=== PATIENT | female | born 1985 | race Caucasian/White ===

== ENCOUNTER 2016-04-17 04:38 | Emergency (ER) | payer OTHER, BC ==
[2016-04-17] MEDS ORDERED: Ketorolac INJ* 30 MG/ML 1 ML VIAL IV PUSH ONE (05:00)
[2016-04-17] MEDS ORDERED: Ondansetron INJ* 2 MG/ML VIAL IV ONE (05:00)
[2016-04-17] MEDS ORDERED: NS 0.9% 1000 ML* 1,000 ML IV ONE (05:00)
[2016-04-17 05:17] LABS: Hematocrit 39 % (35-47); Hemoglobin 12.9 g/dl (12.0-16.0); Mean Corpuscular HGB Conc 33 g/dl (31-36); Mean Corpuscular Hemoglobin 30 pg (27-31); Mean Corpuscular Volume 91 fL (80-97); Mean Platelet Volume 8 um3 (7.4-10.4); Red Blood Count 4.25 10^6/ul (4.0-5.4); Red Cell Distribution Width 14 % (10.5-15); White Blood Count 7.6 10^3/ul (3.5-10.8)
[2016-04-17 05:18] LABS: Comments Flag Yes
[2016-04-17 05:19] LABS: Add Diff/Slide Review? Slide Review Added
[2016-04-17 05:35] LABS: BUN/Creatinine Ratio 12.7 (8-20); EGFR African American 123.5 (>60); Potassium 3.5 mmol/L (3.5-5.0)
[2016-04-17] MEDS ORDERED: PROCHLORPERAZINE INJ 5 MG/ML 2 ML VIAL IV ONE (06:01)
[2016-04-17] MEDS ORDERED: diPHENhydraMINE IV* 50 MG/ML 1 ml VIAL (BENADRYL) IV ONE (06:01)
--- NOTE | 2016-04-17 06:47 | ED ---
Tamera Plasencia Janilya, scribed for Devendra Thapa MD on 04/17/16 at 0503 . Headache - HPI Summary HPI Summary: [facility] 31 [facility]/ a sudden onset of constant migraines starting an hour and a half ago. Severity rated as the worst COLLINS ever. Pt describes the COLLINS as tension in the head. In addition, pt reports numbness in hands and nausea. - History Of Current Complaint Chief Complaint: EDHeadache Stated Complaint: NUMB HANDS,TONGUE/FUZZY VISION Time Seen by Provider: 04/17/16 04:57 Hx Obtained From: Patient Onset/Duration: Sudden Onset, Started hours ago, Still Present Initially Headache Was: "Worst Headache Ever" Currently Pain Is: Moderate Timing: Constant Character: Migraine Aggravating Factor: Nothing Allevating Factors: Nothing Associated Signs And Symptoms: Nausea - Allergies/Home Medications Allergies/Adverse Reactions: Allergies Allergy/AdvReac Type Severity Reaction Status Date / Time Bee Venom Allergy Intermediate Rash And Verified 04/17/16 04:46 Itching PMH/Surg Hx/FS Hx/Imm Hx Infectious Disease History: No Infectious Disease History: Reports: Traveled Outside the [place] in Last 30 Days - [place], returned 2 weeks [employer]. - Family History Known Family History: Negative: Cardiac Disease, Hypertension, Diabetes - Social History Hx Substance Use: No Review of Systems Negative: Fever Positive: Nausea Positive: Headache - as well as tension, Numbness - in hands All Other Systems Reviewed And Are Negative: Yes Physical Exam Triage Information Reviewed: Yes Vital Signs On Initial Exam: Initial Vitals Temp Pulse Resp BP Pulse Ox 97.9 F 79 22 117/66 100 04/17/16 04:46 04/17/16 04:46 04/17/16 04:46 04/17/16 04:46 04/17/16 04:46 Vital Signs Reviewed: Yes Appearance: Positive: Thin Skin: Positive: Warm Eyes: Positive: EOMI, CALLI ENT: Positive: Hearing grossly normal Neck: Positive: Supple Respiratory/Lung Sounds: Positive: Clear to Auscultation, Breath Sounds Present Cardiovascular: Positive: RRR Abdomen Description: Positive: Nontender, Soft Musculoskeletal: Positive: Strength/ROM Intact Neurological: Positive: Sensory/Motor Intact, CN Intact II-III, Normal Gait Psychiatric: Positive: Normal Diagnostics - Vital Signs Vital Signs Temp Pulse Resp BP Pulse Ox 04/17/16 04:46 97.9 F 79 22 117/66 100 - Laboratory Lab Results: Lab Results 04/17/16 04/17/16 Range/Units 04:50 04:50 WBC 7.6 (3.5-10.8) 10^3/ul RBC 4.25 (4.0-5.4) 10^6/ul Hgb 12.9 (12.0-16.0) g/dl Hct 39 (35-47) % MCV 91 (80-97) fL MCH 30 (27-31) pg MCHC 33 (31-36) g/dl RDW 14 (10.5-15) % Plt Count 258 (150-450) 10^3/ul MPV 8 (7.4-10.4) um3 Neut % (Auto) 60.6 (38-83) % Lymph % (Auto) 26.1 (25-47) % [place] % (Auto) 8.5 (1-9) % Eos % (Auto) 2.3 (0-6) % Baso % (Auto) 2.5 H (0-2) % Absolute Neuts (auto) 4.6 (1.5-7.7) 10^3/ul Absolute Lymphs (auto) 2.0 (1.0-4.8) 10^3/ul Absolute Monos (auto) 0.6 (0-0.8) 10^3/ul Absolute Eos (auto) 0.2 (0-0.6) 10^3/ul Absolute Basos (auto) 0.2 (0-0.2) 10^3/ul Absolute Nucleated RBC 0 10^3/ul Nucleated RBC % 0 Sodium 135 (133-145) mmol/L Potassium 3.5 (3.5-5.0) mmol/L Chloride 103 (101-111) mmol/L Carbon Dioxide 25 (22-32) mmol/L Anion Gap 7 (2-11) mmol/L BUN 9 (6-24) mg/dL Creatinine 0.71 (0.51-0.95) mg/dL Est GFR ( Amer) 123.5 (>60) Est GFR (Non-Af Amer) 96.0 (>60) BUN/Creatinine Ratio 12.7 (8-20) Glucose 105 H (70-100) mg/dL Calcium 9.0 (8.6-10.3) mg/dL Result Diagrams: 04/17/16 04:50 04/17/16 04:50 Lab Statement: Any lab studies that have been ordered have been reviewed, and results considered in the medical decision making process. Headache Course/Dx - Diagnoses Provider Diagnoses: Migraine headache Discharge - Discharge Plan Condition: Improved Disposition: HOME Prescriptions: SUMAtriptan TAB* [Imitrex TAB*] 50 mg PO SEE INSTRUCTIONS #10 tab Patient Education Materials: Migraine Headache (ED) The documentation as recorded by the Tamera dior Janilya accurately reflects the service I personally performed and the decisions made by me, Devendra Thapa MD.
[2016-04-17 07:53] VITALS: BP 111/70
== END 2016-04-17 07:52 | disposition home or self-care (01) ==
LOC: ED 04:38
DX: G43.909 Migraine, unspecified, not intractable, without status migrainosus (principal); R11.0 Nausea; R51 Headache
CPT/HCPCS: 36415; 80048; 85025; 96374; 96375; 99284; J0780; J1200; J1885; J2405